=== PATIENT | female | born 1980 | race Caucasian/White ===

== ENCOUNTER → 2018-07-30 13:57 | Outpatient (CLI) | payer OTHER, SELFPAY ==
[2018-08-02 13:27] LABS: HPV Reflexed? NOT INDICATED
== END ==
PROVIDERS: Visit Provider Obstetrics & Gynecology
DX: Z12.4 Encounter for screening for malignant neoplasm of cervix (principal)
CPT/HCPCS: 88175; G0145

== ENCOUNTER → 2019-08-01 16:17 | Outpatient (CLI) | payer OTHER, SELFPAY ==
[2015-03-27 08:31] VITALS: BMI 28.3
[2019-08-07 15:20] LABS: HPV Reflexed? NOT INDICATED
== END ==
PROVIDERS: Referring Provider Obstetrics & Gynecology; Visit Provider Obstetrics & Gynecology
DX: Z12.4 Encounter for screening for malignant neoplasm of cervix (principal)
CPT/HCPCS: 88175; G0145

== ENCOUNTER → 2020-07-12 15:24 | Outpatient (CLI) | payer OTHER, SELFPAY ==
[2015-03-27 08:31] VITALS: BMI 28.3
[2020-07-12 18:48] LABS: ALB/GLOB Ratio 1.2 RATIO (0.9-2.4); AST(SGOT) 14 U/L (15-37); Alanine Aminotransfer ALT/SGPT 20 U/L (13-56); Albumin, Serum 4.2 g/dL (3.2-5.0); Alkaline Phosphatase 83 U/L (45-117); Anion Gap 6 (5-15); BUN 13 mg/dL (7-18); BUN/Creat Ratio 14.9 RATIO (10-20); Chloride 105 mmol/L (98-107); Creatinine, Serum 0.87 mg/dL (0.55-1.02); EST Glomerular Filtration Rate 77 mL/min (>60); Est Glom Filt Rate - Afr Amer 93 mL/min (>60); Globulin 3.5 g/dL (2.2-4.2); Glucose 85 mg/dL (74-106); Potassium 3.6 mmol/L (3.5-5.1); Protein, Total 7.7 g/dL (6.4-8.2); Sodium Level 138 mmol/L (136-145)
[2020-07-12 20:48] LABS: CRP 4.82 mg/L (0.0-3.0)
[2020-07-14 14:08] LABS: Endomysial Antibody IgA Negative (Negative)
[2020-07-14 17:23] LABS: Immunoglobulin A 140 mg/dL (87-352); t-Transglutaminase IgA <2 U/mL (0-3)
== END ==
PROVIDERS: Referring Provider Internal Medicine Gastroenterology; Visit Provider Internal Medicine Gastroenterology
DX: R10.9 Unspecified abdominal pain (principal)
CPT/HCPCS: 36415; 80053; 82784; 83516; 86140; 86255

== ENCOUNTER → 2020-07-20 08:05 | Outpatient (CLI) | payer OTHER, SELFPAY ==
--- NOTE | 2020-07-20 08:10 | RAD_ITS ---
PROCEDURE: SMALL BOWEL SERIES DATE OF EXAMINATION: 07/20/2020. INDICATION: Female, 40 years old. Abdominal pain and abdominal cramping. PHYSICIAN: Feliciano Tejeda M.D. FLUOROSCOPY TIME (if supplied): (0:13) minutes/seconds. 8 images were obtained. TECHNIQUE: Radiographic and fluoroscopic images were taken of the small intestine following the ingestion of barium. COMPARISON: None. FINDINGS: A preliminary supine KUB was obtained. There is an unremarkable bowel gas pattern. A large amount of fecal material is present throughout the colon. . The osseous structures are normal. The patient orally ingested approximately 12 ounces of thin barium Normal visualized fundus, body, and antrum of the stomach. Normal duodenal bulb, C-loop, and proximal jejunum. Normal visualized mucosal folds of the jejunum and ileum. There are no demonstrated dilatations, strictures, or masses of the small intestine. There is no mass displacement of the loops of small intestine. There is a normal motor pattern with barium reaching the colon within approximately 60 minutes. Spot films under fluoroscopic observation demonstrated a normal terminal ileum and ileocecal valve. RAD/Small Bowel Series Only IMPRESSION: Normal small bowel series. Large amount of fecal material is seen in the colon. Electronically Signed: Feliciano Tejeda, at 10:58 EDT , Service support ,
== END ==
LOC: RAD 08:08
PROVIDERS: Referring Provider Internal Medicine Gastroenterology; Visit Provider Internal Medicine Gastroenterology
DX: R10.9 Unspecified abdominal pain (principal)
CPT/HCPCS: 74250

== ENCOUNTER → 2021-08-08 | Outpatient (CLI) | payer OTHER, SELFPAY ==
[2021-08-12 13:37] LABS: HPV APTIMA, High Risk Negative (Negative)
== END | disposition home or self-care (01) ==
LOC: LABSPEC 14:37
PROVIDERS: Visit Provider Obstetrics & Gynecology
DX: Z12.4 Encounter for screening for malignant neoplasm of cervix (principal)
CPT/HCPCS: 87624; 88175; G0145

== ENCOUNTER → 2022-03-14 | Outpatient (CLI) | payer OTHER, SELFPAY ==
[2022-03-14 15:30] LABS: Hemoglobin 12.9 g/dL (12.0-15.0); Mean Corp Hgb Conc 33.9 g/dL (32-36); Mean Corpuscular Hgb 31.8 pg (27.0-32.0); Mean Corpuscular Volume 93.6 fL (81-99); Mean Platelet Vol. 10.1 fl (6.2-12.0); Platelet Count 247 K/mm3 (150-450); RBC Distribution Width CV 12.9 % (11.6-14.6); RBC Distribution Width SD 44.5 fl (35.1-43.9); Red Blood Count 4.06 M/mm3 (4.2-5.4); White Blood Count 8.3 K/mm3 (4.4-11.0)
[2022-03-14 16:11] LABS: Estradiol 163.1 pg/mL; Follicle Stimulating Hormone 2.4 mIU/mL; Luteinizing Hormone 5.5 mIU/mL; T4 Free Direct 0.84 ng/dL (0.76-1.46); Thyroid Stim Hormone (TSH) 1.14 uIU/mL (0.358-3.74)
== END | disposition home or self-care (01) ==
PROVIDERS: Visit Provider Obstetrics & Gynecology
DX: N93.9 Abnormal uterine and vaginal bleeding, unspecified (principal)
CPT/HCPCS: 36415; 82670; 83001; 83002; 84439; 84443; 85027

== ENCOUNTER → 2022-04-06 | Outpatient (CLI) | payer OTHER, SELFPAY ==
--- NOTE | 2022-04-06 11:30 | EMB_PTH ---
PATIENT: GABY HOU LOC: [facility] U#:[id number] AGE/SX: 41/F ROOM: RE04/06/[address]: Dr. Mo Spears MD : 1980 BED: DIS: 04/06/2022 SPEC #: [id number] RECD: 04/06/22 14:56 STATUS: GRABIEL REQ #: [id number] JORGE: 04/06/22 11:[address]: Mo Spears DEPT: SURGICAL PATHOLOGY RECD BY: Lou Chua ENTERED: 04/07/22 09:11 SP TYPE: ENDOM BX/C VERITO DR: Alexandrea Primary Care Phys Tissues: Endometrium, NOS Procedures: Surgery Specimen Level IV HEADER OPERATION: Endometrial biopsy PRE-OP DIAGNOSIS: Abnormal uterine bleeding TISSUE SUBMITTED: Endometrial biopsy MICROSCOPIC DIAGNOSIS Endometrium, biopsy: Secretory endometrium. AM:saroj 04/11/2022 MICROSCOPIC DESCRIPTION Slides are reviewed. GROSS DESCRIPTION Received in fixative is one container labeled with the patient's name and designated endometrial biopsy. The specimen consists of multiple irregular fragments of chadwick-pink soft tissue that in aggregate measure 3 x 2.5 x 0.3 cm. The specimen is totally submitted in one cassette. / SJ:saroj 04/07/2022 TC:5 CPT: 02189
== END | disposition home or self-care (01) ==
LOC: LABSPEC 11:53
PROVIDERS: Visit Provider Obstetrics & Gynecology
DX: N93.9 Abnormal uterine and vaginal bleeding, unspecified (principal)
CPT/HCPCS: 88305

== ENCOUNTER 2022-06-05 05:53 | Day surgery (SDC) | payer OTHER, SELFPAY ==
[2022-06-05 06:24] VITALS: BP 124/77; PULSE 61; RESP 16; TEMP 36.3; O2SAT 99; BMI 28.1
[2022-06-05 06:30] LABS: Internal QC Validated? YES +Cl - CLEAR BKGD; Pregnancy, Urine Negative Negative
[2022-06-05] MEDS: Lactated Ringers 1,000 ML 30 ML IV (06:40)
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
--- NOTE | 2022-06-05 07:30 | EMB_PTH ---
PATIENT: GABY HOU LOC: [facility] [place] U#:[id number] AGE/SX: 42/F ROOM: RE06/05/[address]: Dr. Mo Spears MD : 1980 BED: DIS: 06/05/2022 SPEC #: [id number] RECD: 06/05/22 09:23 STATUS: GRABIEL [facility] #: [id number] JORGE: 06/05/22 07:[address]: Mo Spears DEPT: SURGICAL PATHOLOGY RECD BY: Lou Chua Tissues: Endometrium, NOS Procedures: Surgery Specimen Level IV HEADER OPERATION: Hysteroscopy, D & C Evonne PRE-OP DIAGNOSIS: Abnormal uterine and vaginal bleeding TISSUE SUBMITTED: Endometrial curettings MICROSCOPIC DIAGNOSIS Endometrial curettings: Early secretory endometrium. OLENA:saroj 06/06/2022 MICROSCOPIC DESCRIPTION Slides are reviewed. GROSS DESCRIPTION Received in fixative is one container labeled with the patient's name and designated endometrial curettings. The specimen consists of multiple fragments of pink hemorrhagic soft tissue that in aggregate measure 3 x 2.5 x 0.3 cm. The specimen is totally submitted in one cassette. / SJ:rg 06/05/2022 TC:4 CPT: 20036
--- NOTE | 2022-06-05 08:07 | DCINST_ITS ---
Discharge Instructions Diet Discharge Diet: No restrictions Activity Discharge Activity: Return to Normal Activity, May Drive and May Shower May resume sexual activity in: 4-6 weeks Weight Bearing Status: Weight bearing as tolerated Dressing / Incision Call your doctor if your incision/area has: Continuous Slow Oozing and Foul Smelling Discharge Call your doctor if you observe: Fever of 101 or Higher, Shortness of breath and Chest pain Follow Up Care Please Follow Up With: Mo Spears MD When: Follow-up 2 to 4 weeks postoperatively Test Results: Test results from this visit will be discussed in further detail at your follow- up appointment, if applicable. Discharge Plan Admission Attending Provider: Mo Spears Primary Care Provider: DARION SANTILLAN Discharge Orders/Prescriptions Prescriptions: No Action famotidine 20 MG tablet 20 mg PO DAILY cetirizine [Zyrtec] 10 mg Tablet 10 mg PO DAILY fluticasone propionate [Flonase] 50 mcg/actuation [place],Suspension 1 spray INTRANASAL DAILY Rx Instructions: administer into each nostril escitalopram oxalate [Lexapro] 20 mg tablet 1 tab PO DAILY Label Comments: TAKE 1 TABLET BY MOUTH EVERY DAY melatonin 10 mg Capsule 10 mg PO QHS Referrals / Follow Up: DARION SANTILLAN [Other] Disposition Disposition (needs filled in before D/C Order can be placed): Home, Self Care
--- NOTE | 2022-06-05 08:08 | PCM.OPRPT ---
Report of Operation Date of Procedure: 06/05/22 Pre-Operative Diagnosis: Abnormal uterine bleeding Post-Operative Diagnosis: Abnormal uterine bleeding Surgery/Procedure Performed:: Hysteroscopy, dilation and curettage, endometrial ablation via Evonne Description of Surgical Findings:: Surgeon: Mo Spears MD Anesthesia: General EBL: 5 cc Urine output: 50 cc none IV fluids: 800 cc Complications: None Specimen: Endometrial curettings Findings: Normal uterine cavity prior to ablation. Cavity length found to be 6 cm. Evonne ablation for 2 minutes. Post procedure hysteroscopy with no new pathology Consent: Patient with abnormal uterine bleeding elects for hysteroscopy, dilation curettage, endometrial ablation via Evonne. Patient understands the risk of the procedure include but are not limited to visceral or vascular injury, prolonged hospitalization, blood loss need for transfusion, reoperation. Patient state understanding wish to proceed. All questions were answered and consent was signed. Procedure: Patient was brought back to the OR where general anesthesia found be adequate. Patient was prepared and draped in dorsolithotomy position with yellowfin stirrups. Weighted speculum is placed in the posterior aspect of the vagina and cervical dilators were used to dilate the cervix. Hysteroscope was inserted and above findings were noted. Sharp endometrial curettage was performed in all 4 quadrants, sent to pathology. Uterine cavity length found to be 6 cm. Evonne endometrial ablation device inserted under direct visualization. Evonne safety test passed x2. Evonne ablation for 2 minutes proceeded. Evonne device removed under direct visualization. Hysteroscope inserted post procedure, above findings noted. Good hemostasis was noted. All counts were correct x2. Patient tolerated procedure well and was brought to recovery in stable condition.
[2022-06-05 08:12] VITALS: BP 120/73; BP 124/77; PULSE 81; RESP 16; TEMP 36.3; O2SAT 93
[2022-06-05 08:15] VITALS: BP 117/73; BP 124/77; PULSE 81; RESP 16; O2SAT 97
[2022-06-05 08:30] VITALS: BP 117/73; BP 124/77; PULSE 81; RESP 16; O2SAT 94
[2022-06-05 08:43] VITALS: BP 119/78; BP 124/77; PULSE 60; RESP 16; TEMP 36.3; O2SAT 100
[2022-06-05 10:14] VITALS: BP 124/77
== END 2022-06-05 10:16 | disposition home or self-care (01) ==
LOC: SDC 05:55 → AC 05:57
PROVIDERS: Anesthesiology; Referring Provider Obstetrics & Gynecology; Visit Provider Obstetrics & Gynecology
PROC: 0U5B8ZZ Destruction of Endometrium, Via Natural or Artificial Opening Endoscopic (ICD-10-PCS; CPT 58558; principal; 2022-06-05 07:15)
DX: N93.9 Abnormal uterine and vaginal bleeding, unspecified (principal); F32.A Depression, unspecified; F41.9 Anxiety disorder, unspecified; Z86.16 Personal history of COVID-19; K21.9 Gastro-esophageal reflux disease without esophagitis; Z79.899 Other long term (current) drug therapy
CPT/HCPCS: 58563; 00952; 81025; 88305; J7120; J2405